=== PATIENT | female | born 1985 | race Caucasian/White ===

== ENCOUNTER 2021-04-22 11:08 | Outpatient (CLI) | payer BC, SELFPAY ==
--- NOTE | ~2021-04-22 | MMUS_ITS ---
EXAMINATION: MM diagnostic anjana LT w vikash, US breast LT limited HISTORY: Left breast lump, intermittent, first noted 3 months ago. Patient does not feel the lump tod ay. TECHNIQUE: ML, MLO and craniocaudal 3-D tomosynthesis images of the left breast were performed and sy nthetic 2-D images were generated. CAD analysis was submitted and interpreted. High resolution lower outer quadrant left breast ultrasound was performed. COMPARISON: None BREAST PARENCHYMAL COMPOSITION: There are scattered areas of fibroglandular density. FINDINGS: MAMMOGRAPHIC FINDINGS: No suspicious mass or architectural distortion, malignant calcification, skin thickening or retractio n is detected. ULTRASOUND: No suspicious mass or shadowing is evident. IMPRESSION: 1. No mammographic evidence of malignancy 2. Routine mammographic screening is recommended. BI-RADS Category 1: Negative Reviewed, dictated and finalized at location A. IMPRESSION: 1. No mammographic evidence of malignancy 2. Routine mammographic screening is recommended. BI-RADS Category 1: Negative
== END 2021-04-22 11:09 | disposition home or self-care (01) ==
LOC: ANHIMG 11:10
PROVIDERS: Visit Provider Obstetrics & Gynecology
DX: N63.20 Unspecified lump in the left breast, unspecified quadrant (principal)
CPT/HCPCS: 76642; 77061; 77065; G0279

== ENCOUNTER 2022-01-17 19:07 | Emergency (ER) | payer BC, SELFPAY ==
--- NOTE | ~2022-01-17 | XR_ITS ---
XR ankle LT min 3V 01/17/2022 19:33 Indication: Left ankle pain and swelling Procedure: 4 views left ankle Comparison: 02/25/2009 Findings: Moderate lateral soft tissue swelling. There is a corticated ossific density superior to th e talus on the lateral view, likely related to remote trauma. There is a tiny ossific density just la teral to the talus distal to the fibula, suspicious for avulsion fracture. Ankle mortise intact. Pamela r dome is normal. Small degenerative calcaneal enthesophyte. Impression: 1: Age-indeterminate avulsion fracture lateral to the talus and distal tibia-fibula with associated s oft tissue swelling. Correlate for point tenderness. Reviewed, dictated and finalized at location A. MER Impression: 1: Age-indeterminate avulsion fracture lateral to the talus and distal tibia-fi bula with associated soft tissue swelling. Correlate for point tenderness.
[2022-01-17 19:23] VITALS: BP 143/103; PULSE 90; RESP 18; TEMP 36.8; O2SAT 99
--- NOTE | 2022-01-17 19:30 | ED.LOWEXIN ---
HPI - Extremity Injury (Lower) General Chief Complaint: Extremity Injury, Lower Stated Complaint: lt ankle injury Time Seen by Provider: 01/17/22 19:31 Source: patient Mode of arrival: ambulatory Limitations: no limitations History of Present Illness HPI Narrative: 36-year-old female presents with pain and swelling to left ankle. About 1 hour prior to arrival patient was stepping down off 1 step, left ankle twisted and she fell to the ground. Patient has abrasions to left hand and right knee but denies pain to these areas. She reports that she is unable to bear weight. She arrived to exam room 2 in a wheelchair. Swelling noted to left ankle, distal neurovascular intact. All systems reviewed and negative except as noted. Related Data Home Medications Medication Instructions Recorded Confirmed levonorgestrel 20 mcg/24 hours (7 1 device I-UTERINE ONCE 10/20/19 01/17/22 yrs) 52 mg intrauterine device Allergies Allergy/AdvReac Type Severity Reaction Status Date / Time amoxicillin Allergy Unknown Unknown Verified 01/17/22 19:27 Review of Systems Review of Systems: CONSTITUTIONAL: Denies fever, chills, or sweats. EYES: Denies visual changes, redness, or discharge. ENT: Denies rhinorrhea, congestion, sore throat, or otalgia. CARDIOVASCULAR: Denies chest pain, palpitations, or edema. RESPIRATORY: Denies cough or dyspnea. GASTROINTESTINAL: Denies abdominal pain, nausea, vomiting, or diarrhea. GENITOURINARY: Denies dysuria or hematuria. SKIN: Denies rash or itching. Abrasion to palm of left hand and right knee MUSCULOSKELETAL: Denies back pain, joint pain, or myalgia. Pain and swelling to left ankle. NEUROLOGIC: Denies headache, numbness, or weakness. PSYCHIATRIC: Denies anxiety or depression. All other systems reviewed are negative, except as documented in HPI. [facility] Past Medical History Medical History Anxiety Depression Missed x1 Vaginal delivery x1 Surgical History Surgical History Hx of cholecystectomy Family History Family History Father Hypertension Diabetes mellitus Mother Family history of malignant neoplasm of cervix Grandparent Family history of lung cancer Social History Social History Smoking status: Never smoker Alcohol intake: never Substance use: unknown Comments At time of signature, agree with nursing past medical, surgical, social and family history. There is no relevant family history pertinent to the presenting complaint. Exam Narrative: GENERAL: This is a well-nourished, well-developed patient, in no apparent distress. HEAD: normocephalic, atraumatic. EYES: PERRL. Sclera clear/white. Vision is grossly intact. EARS: External ears normal, auditory canals clear and without drainage, TMs normal without perforation. Hearing grossly intact. NOSE: External nose normal with no obvious nasal discharge, nares without redness, no rhinorrhea. THROAT: Mucous membranes moist, posterior pharynx clear. NECK: Neck supple, non-tender without lymphadenopathy, masses or thyromegaly. CARDIOVASCULAR: Regular rate and rhythm without murmurs, gallops, or rubs. RESPIRATORY: Clear to auscultation. Breath sounds equal bilaterally. No wheezes, rales, or rhonchi. GASTROINTESTINAL: Abdomen soft, non-tender, nondistended. Bowel sounds are active. No hepato-splenomegaly, or palpable masses. No guarding. SKIN: warm, Dry, with no suspicious lesions or rash, good texture and turgor. Nontender abrasions to palm of left hand and to anterior aspect right knee. NEURO: awake, alert, and oriented to person, place and time. There were no obvious focal neurologic abnormalities. EXTREMITIES: No calf tenderness. Negative Homans sign bilaterally. There is swelling to lateral asp
== END 2022-01-17 19:55 | disposition home or self-care (01) ==
PROVIDERS: Emergency Provider Nurse Practitioner Family; PCP Family Medicine
DX: S92.152A Displaced avulsion fracture (chip fracture) of left talus, initial encounter for closed fracture (principal); X50.9XXA Other and unspecified overexertion or strenuous movements or postures, initial encounter
CPT/HCPCS: 29515; 73610; 99213; G0463

== ENCOUNTER 2024-09-07 13:57 | Outpatient (CLI) | payer BC, SELFPAY ==
--- NOTE | ~2024-09-07 | XR_ITS ---
XR chest 2V 09/07/2024 14:19 Indication: Cough Procedure: 2 view chest Comparison: Comparison to multiple prior studies sequentially, with oldest reviewed study dated 12/14. Findings: There is left lower lobe consolidation, consistent with pneumonia. No pleural effusion, kassidy ma or pneumothorax. No acute osseous abnormality. Impression: 1: Left lower lobe pneumonia. Reviewed, dictated and finalized at location B. Impression: 1: Left lower lobe pneumonia.
== END 2024-09-07 13:58 | disposition home or self-care (01) ==
LOC: MICIMG 13:58
PROVIDERS: PCP Family Medicine; Visit Provider Physician Assistant Medical
DX: J18.1 Lobar pneumonia, unspecified organism (principal)
CPT/HCPCS: 71046

== ENCOUNTER 2024-09-16 09:08 | Outpatient (CLI) | payer BC, SELFPAY ==
--- NOTE | ~2024-09-16 | XR_ITS ---
Clinical Indication: Cough PA and lateral views of the chest: Comparison: 09/07/2024 Findings: Probable mild left basilar atelectatic change. Right lung clear. No pleural effusion. Card iomediastinal silhouette is within normal limits. Bones and soft tissues are unremarkable. Impression: Probable left basilar atelectatic change. Correlate for pneumonia. Reviewed, dictated and finalized at location . Impression: Probable left basilar atelectatic change. Correlate for pneumonia.
== END 2024-09-16 09:09 | disposition home or self-care (01) ==
LOC: MICIMG 09:09
PROVIDERS: PCP Family Medicine; Visit Provider Physician Assistant Medical
DX: R05.9 Cough, unspecified (principal); R91.8 Other nonspecific abnormal finding of lung field
CPT/HCPCS: 71046